=== PATIENT | male | born 1960 | race Caucasian/White ===

== ENCOUNTER → 2021-11-02 | Outpatient (CLI) | payer OTHER ==
[~2021-11-02] MED LIST: ACETAMINOPHEN-1 EAC1 PO; ALDACTONE 25MG25 MG PO; ASPIRIN CHEWABL81 MG PO; ATORVASTATIN CA20 MG PO; BASAGLAR K100 UNIT/1 SQ; CLOPIDOGREL75 MG PO; COZAAR 25MG TAB25 MG PO; DIGOXIN125 MCG PO; FEROSUL325 MG PO; FLOMAX 0.4 MG0.4 MG PO; FLORINEF 0.1 M0.1 MG PO; FUROSEMIDE20 MG PO; GABAPENTIN400 MG PO; JANUVIA100 MG PO; JANUVIA25 MG PO; K-TAB ER20 MEQ PO; LASIX20 MG PO; LEVOFLOXACIN250 MG PO; LISINOPRIL5 MG PO; LOPRESSOR 25 MG25 MG PO; METOPROLOL SUCC25 MG PO; NAPROXEN500 MG PO; NITROGLYCERIN0.4 MG SL; POTASSIUM CHLO20 ME2 PO; PRAVASTATIN SOD10 MG PO; VITAMIN C250 M1 PO
== END ==
LOC: EXRD 11-01 08:30
DX: R74.8 Abnormal levels of other serum enzymes (principal); E61.1 Iron deficiency
CPT/HCPCS: 76705

== ENCOUNTER → 2021-11-15 | Day surgery (SDC) | payer OTHER ==
[~2021-11-15] MED LIST changes: +ELIQUIS5 MG PO; +SEMGLEE (Y100 UNIT/1 SQ
== END | disposition home or self-care (01) ==
LOC: OR 08:30
DX: Z12.11 Encounter for screening for malignant neoplasm of colon (principal); D12.0 Benign neoplasm of cecum; D12.2 Benign neoplasm of ascending colon; D12.3 Benign neoplasm of transverse colon; K64.0 First degree hemorrhoids; K31.9 Disease of stomach and duodenum, unspecified; E61.1 Iron deficiency; R74.8 Abnormal levels of other serum enzymes; E11.9 Type 2 diabetes mellitus without complications; E78.5 Hyperlipidemia, unspecified; I25.2 Old myocardial infarction; Z88.0 Allergy status to penicillin; Z79.01 Long term (current) use of anticoagulants; Z79.02 Long term (current) use of antithrombotics/antiplatelets; Z79.4 Long term (current) use of insulin; Z79.899 Other long term (current) drug therapy
CPT/HCPCS: 82962; J2704; J7040